=== PATIENT | female | born 1975 | race Caucasian/White ===

== ENCOUNTER 2017-06-16 14:05 | Observation (INO) | payer BC ==
[2017-06-16] MEDS ORDERED: NS 0.9% 1000 ML* 1,000 ML IV ONE ×2 (14:20→15:44)
[2017-06-16] MEDS ORDERED: Aspirin Low Dose CHEW TAB* 81 MG PO ONE (14:20)
[2017-06-16] MEDS ORDERED: Adenosine* 3 MG/ML VIAL IV PUSH ONE (14:36)
[2017-06-16] MEDS ORDERED: Metoprolol Tartrate TAB* 25 MG PO ONE ×2 (14:55→17:19)
[2017-06-16 15:01] LABS: Hematocrit 43 % (35-47); Hemoglobin 14.8 g/dl (12.0-16.0); Mean Corpuscular HGB Conc 34 g/dl (31-36); Mean Corpuscular Hemoglobin 31 pg (27-31); Mean Corpuscular Volume 91 fL (80-97); Mean Platelet Volume 8 um3 (7.4-10.4); Red Blood Count 4.74 10^6/ul (4.0-5.4); Red Cell Distribution Width 13 % (10.5-15); White Blood Count 12.4 10^3/ul (3.5-10.8)
[2017-06-16 15:15] LABS: ALT 41 U/L (7-52); AST 23 U/L (13-39); Albumin 4.3 g/dL (3.2-5.2); Alkaline Phosphatase 57 U/L (34-104); Anion Gap 8 mmol/L (2-11); BUN/Creatinine Ratio 12.5 (8-20); Blood Urea Nitrogen 9 mg/dL (6-24); CO2 Carbon Dioxide 26 mmol/L (22-32); Calcium 9.4 mg/dL (8.6-10.3); Chloride 99 mmol/L (101-111); EGFR African American 114.2 (>60); EGFR Non-African American 88.8 (>60); Globulin 2.9 g/dL (2-4); Glucose 240 mg/dL (70-100); Magnesium 1.7 mg/dL (1.9-2.7); Potassium 3.5 mmol/L (3.5-5.0); Sodium 133 mmol/L (133-145); Total Protein 7.2 g/dL (6.4-8.9)
[2017-06-16 15:18] LABS: Troponin I 0.01 ng/mL (<0.04)
--- NOTE | 2017-06-16 15:23 | RAD ---
HISTORY: Chest pain COMPARISONS: None VIEWS: 1: frontal portable view of the chest at 3:00 PM FINDINGS: LINES AND TUBES: None. CARDIOMEDIASTINAL SILHOUETTE: The cardiomediastinal silhouette is normal for portable technique. PLEURA: The costophrenic angles are sharp. No pleural abnormalities are noted. LUNG PARENCHYMA: The lungs are clear. ABDOMEN: The upper abdomen is clear. There is no subphrenic gas. BONES AND SOFT TISSUES: No bone or soft tissue abnormalities are noted. IMPRESSION: NO ACTIVE CARDIOPULMONARY DISEASE.
[2017-06-16] MEDS ORDERED: Magnesium Sulfate 1 GM IV* 1 GM/100 ML BAG IV ONE (15:43)
[2017-06-16] MEDS ORDERED: Potassium Chlor TAB* 20 MEQ TAB.ER PO ONE (15:43)
[2017-06-16 15:55] LABS: T4 7.36 mcg/mL (6.09-12.23)
[2017-06-16 15:58] LABS: TSH (Thyroid Stimulating Horm) 4.26 mcIU/mL (0.34-5.60)
[2017-06-16] MEDS ORDERED: Ibuprofen TAB* 800 MG PO PRN (17:20)
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
[2017-06-16] MEDS ORDERED: Dextrose 50% Syringe 50 ML* 25 GM/50 ML SYRINGE IV PUSH PRN (17:37)
[2017-06-16] MEDS ORDERED: Enoxaparin(*) 40 MG/0.4 ML SYR SUBCUT SCH (18:00)
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
[2017-06-16] MEDS ORDERED: Metoprolol Tartrate TAB* 25 MG PO SCH (21:00)
[2017-06-16] MEDS: Metoprolol Tartrate TAB* 50 mg PO SCH (22:40)
[2017-06-16] MEDS: metFORMIN* 1,000 MG TAB PO SCH (22:41)
[2017-06-16] MEDS: Insulin LISPRO* 1 UNITS UNIT SUBCUT SCH (22:41)
[2017-06-17 08:39] VITALS: BP 153/100
[2017-06-17] MEDS: Metoprolol Tartrate TAB* 50 mg PO SCH (08:45)
[2017-06-17] MEDS: Insulin LISPRO* 1 UNITS UNIT SUBCUT SCH (08:45)
[2017-06-17] MEDS: metFORMIN* 1,000 MG TAB PO SCH (08:45)
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
[2017-06-17] MEDS ORDERED: Atorvastatin* 20 MG TAB PO SCH (09:00)
[2017-06-17] MEDS ORDERED: CMCS:SitaGLIPtin (NF) 100 MG TAB PO SCH (09:00)
--- NOTE | 2017-06-18 03:03 | DS ---
CC: Caro Gracia NP DISCHARGE SUMMARY: DATE OF ADMISSION: 06/16/17 DATE OF DISCHARGE: 06/17/17 HISTORY: This 42-year-old woman presented with palpitations. She had had them daily for a month. They usually last a few minutes to an hour. Today the palpitations started at work, about 7:30 in the morning, and lasted all day. She came to the ER and was cardioverted with intravenous adenosine. She felt well after that. 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 She really was not having any difficulty breathing or lightheadedness. She had a little discomfort in her chest, which she describes as a sensation of her heart racing. As the patient had been having symptoms daily for a month, starting therapy to prevent recurrent SVT was deemed appropriate. She was started on metoprolol 50 mg b.i.d. She received 2 doses of this in addition to a 25 mg test dose in the emergency room. She tolerated it quite well. If anything, her blood pressure was slightly high in the hospital, although some of it may be artifactual from the automated cuff. Heart rate was in the 60s on the day of discharge. The patient was advised to discuss bariatric surgery with her primary care physician. FINAL DIAGNOSES: 1. Supraventricular tachycardia. 2. Diabetes. 3. Morbid obesity. 4. Hyperlipidemia. DISCHARGE MEDICATIONS: 1. Metoprolol tartrate 50 mg b.i.d. 2. Ibuprofen 800 mg every 6 hours p.r.n. 3. Simvastatin 40 mg daily. 4. Metformin 1000 mg b.i.d. 5. Sitagliptin 100 mg daily. [id number]/[facility] #: [id number] [facility]
== END 2017-06-17 11:14 | disposition home or self-care (01) ==
LOC: ED 14:05 → MEDTELE 17:16
PROVIDERS: ADMIT Internal Medicine; ATTEND Internal Medicine
DX: I47.1 Supraventricular tachycardia (principal); E11.9 Type 2 diabetes mellitus without complications; E66.01 Morbid (severe) obesity due to excess calories; E78.5 Hyperlipidemia, unspecified; R07.9 Chest pain, unspecified; Z79.84 Long term (current) use of oral hypoglycemic drugs; Z79.899 Other long term (current) drug therapy; Z87.891 Personal history of nicotine dependence
CPT/HCPCS: 36415; 71010; 80053; 83605; 83735; 84436; 84443; 84484; 84702; 85025; 85610; 93005; 96361; 96365; 96375; 99291; A9270-GY; G0378; J0153; J1650; J3475

== ENCOUNTER 2017-11-10 20:58 | Emergency (ER) | payer BC ==
--- OUTSIDE RECORDS SUMMARY | 2017-11-10 21:28 | XMS REPORT ---
:1975 External Reference #:[id number] Author Organization [employer] Address [address] [address] Phone [phone] Care Team Providers Name Role Phone Paulette Hewitt MD Primary Care Physician Unavailable Payers Type Date Identification Numbers Payment Provider Subscriber Commercial Policy Number: [id number] [employer] Zoe Wahl PayID: [id number] [address] [address] [place] [address] Problems Description No Information Family History Date Family Member(s) Problem(s) Comments General Diabetes General Cancer Father Diabetes Father Prostate Cancer Mother Hypertension Siblings 1 Social History Type Date Description Comments Marital Status Lives With 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 Cigarette Use Former Cigarette Smoker 1-5 15 years Cigarettes Daily Cigarette Use Quit - Age 35 ETOH Use Rarely consumes alcohol Smoking Patient is a former smoker Quit smoking 05/2015 Recreational Drug Use Denies Drug Use Daily Caffeine Consumes on average 2 cups of regular coffee per day Exercise Type/Frequency Exercises rarely Allergies, Adverse Reactions, Alerts Date Description Reaction Status Severity Comments 07/30/2014 Penicillin active Medications Medication Date Status Form Strength Qnty SIG Indications Ordering Provider Mandibular 10/17/ Active Device 1unit fabricate [employer] 2017 s oral [place], Device appliance DNP, RN, /mandibular [employer]PER[employer]-BC advancement device for sleep apnea with needed adjustments. Metformin HCL / Active 1000mg 1 po bid Unknown 0000 Januvia / Active Tablets 100mg 1 by mouth Unknown 0000 every day Fluticasone / Active Suspension 50mcg/Act 2 sprays Unknown Propionate 0000 each nostril daily as needed Simvastatin / Hx Tablets 40mg take 1 Unknown 0000 - tablet by 10/29/ mouth at 2018 bedtime Metoprolol / Hx Tablets 50mg 1 by mouth Unknown Tartrate 0000 - twice a day 2017 Vital Signs Date Vital Result Comment 10/30/2017 Height 64 inches 5'4" Weight 286.12 lb w/shoes Heart Rate 68 /min BP Systolic Sitting 160 mmHg LA lg cuff BP Diastolic Sitting 104 mmHg LA lg cuff BMI (Body Mass Index) 49.1 kg/m2 Ejection Fraction 50-55% Echo 08/02/17 08/25/2017 Height 64 inches 5'4" Weight 283.38 lb with shoes Heart Rate 58 /min BP Systolic Sitting 128 mmHg Lue large cuff BP Diastolic Sitting 86 mmHg Lue large cuff Respiratory Rate 16 /min O2 % BldC Oximetry 98 % On Ra BMI (Body Mass Index) 48.6 kg/m2 Neck Circumference in inches 17 06/27/2017 Height 64 inches 5'4" Weight 283.50 lb with shoes Heart Rate 70 /min BP Systolic Sitting 148 mmHg LA lrg cuff BP Diastolic Sitting 92 mmHg LA lrg cuff BMI (Body Mass Index) 48.7 kg/m2 07/30/2014 Height 64 inches 5'4" Weight 290.00 lb Heart Rate 87 /min BP Systolic 160 mmHg BP Diastolic 90 mmHg BMI (Body Mass Index) 49.8 kg/m2 Results Description No Information Procedures Date CPT Code Description Status 10/18/2017 56638 Treadmill Interp/Report Only Completed 10/18/2017 96047 Stress Test Supervsn W/Out I/R Completed 09/04/2017 44487 Sleep Study Unattended,HRT Rate,Oxygen Sat,Resp Completed Effort/Airflow 08/08/2017 83200 ECHO Stress Test Incl Perf Contiuous ekg Monitoring Completed W/Phys Superv 08/02/2017 34438 ECHO Transthoracic, Real-Time 2D With Doppler And Color Completed Flow 08/02/2017 36892 ECHO Transthoracic, Real-Time 2D With Doppler And Color Completed Flow 07/04/2017 21810 Holter Monitor Review (24 hr)dr howell & bob Completed only 07/03/2017 62090 ECG Monitor/Recording W/Visual Superimposition Scanning Completed 06/27/2017 08018 EKG Tracing & Interpretation Completed 02/13/2015 28026 Repair Hernia Umbilical > 5 Yrs, Reducible Completed Encounters Type Date Location Provider CPT E/M Dx Office Visit 10/30/2017 4:00p [facility] Jabari Buchanan 39651 G47.33 [place] Hernandez E66.01 E78.5 E11.9 I47.1 Office Visit 08/25/2017 9:30a [facility] [address] R06.83 [facility] R40.0 E66.01 Z68.42 Office Visit 06/27/2017 2:30p [facility] Jabari Hernadnez, 01128 I47.1 [place] E66.01 E78.5 E11.9 G47.9 Office Visit 06/16/2017 2:59p [facility], Nikos Manley, 89606 I47.1 [facility]ists [place] E11.9 E66.01 E78.5 Office Visit 01/29/2016 1:38p [facility], Susie Cavazos, 22294 J05.10 [facility] [place] E78.0 E11.9 E66.01 Office Visit 01/28/2016 1:37p [facility], [place] [address] J05.10 Hospitalists E78.0 E11.9 E66.01 Office Visit 01/27/2016 1:37p [facility], [place] [address] J05.10 Hospitalists E78.0 E11.9 E66.01 Office Visit 01/26/2016 1:36p [facility] [address] J05.10 Assoc, Hospitalists E78.0 E11.9 E66.01 Office Visit 07/30/2014 2:00p [facility] [address]57 924.20 [facility] Plan of Care 10/30/2017 - Jabari Hernandez M.D.G47.33 Obstructive sleep apnea (adult) ( pediatric)E66.01 Morbid (severe) obesity due to excess ldqkbpycE94.5 Hyperlipidemia, bptwbmiskvlO90.9 Type 2 diabetes mellitus without czqdhgnnzmjwaF72.1 Supraventricular tachycardiaFollow up:one yr ov
--- NOTE | 2017-11-10 22:13 | RAD ---
Indication: RIGHT knee pain post fall. Question dislocation. Comparison: None. Technique: RIGHT knee: AP, tunnel, crosstable lateral, sunrise views. REPORT AND IMPRESSION: Diffuse soft tissue swelling. Negative for joint effusion, fracture, or malalignment. Minimal osteophytosis without significant joint space narrowing consistent with Kellgren and Gadiel grade 1 osteoarthritis.
[2017-11-10 23:13] VITALS: BP 154/82
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
== END 2017-11-10 23:08 | disposition home or self-care (01) ==
LOC: ED 20:58
DX: S83.91XA Sprain of unspecified site of right knee, initial encounter (principal); X50.1XXA Overexertion from prolonged static or awkward postures, initial encounter; Y93.89 Activity, other specified; Y92.39 Other specified sports and athletic area as the place of occurrence of the external cause; E11.9 Type 2 diabetes mellitus without complications; Z79.84 Long term (current) use of oral hypoglycemic drugs; E78.00 Pure hypercholesterolemia, unspecified; J45.990 Exercise induced bronchospasm; Z88.0 Allergy status to penicillin; Z87.891 Personal history of nicotine dependence
CPT/HCPCS: 99282

== ENCOUNTER 2018-07-20 21:39 | Emergency (ER) | payer BC ==
[2018-07-20] MEDS ORDERED: Clindamycin CAP* 150 MG PO ONE (23:22)
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
[2018-07-20 23:40] VITALS: BP 152/82
== END 2018-07-20 23:36 | disposition home or self-care (01) ==
LOC: ED 21:39
DX: L03.115 Cellulitis of right lower limb (principal); E11.9 Type 2 diabetes mellitus without complications; Z87.891 Personal history of nicotine dependence; Z88.0 Allergy status to penicillin; E78.00 Pure hypercholesterolemia, unspecified; J45.990 Exercise induced bronchospasm
CPT/HCPCS: 99282; A9270-GY